=== PATIENT | female | born 1955 | race Caucasian/White ===

== ENCOUNTER 2021-02-27 14:48 | Inpatient (IN) | payer BC ==
[~2021-02-27] VITALS: Ht 160 cm; Wt 75.1 kg
[2021-02-27 16:10] LABS: Basophils # (auto) 0.1 10 ^3/uL (0-0.2); Basophils % (auto) 0.5 % (0.0-2.0); Eosinophils # (auto) 0.1 10 ^3/uL (0-0.8); Hematocrit 46.5 % (36.0-46.0); Lymphocytes # (auto) 1.1 10 ^3/uL (0.4-5.4); Lymphocytes % (auto) 10.1 % (10.0-50.0); Mean Corpuscular Hemoglobin 32.8 pg (28.0-32.0); Mean Corpuscular Hgb Conc. 34.5 g/dL (32.0-36.0); Mean Corpuscular Volume 94.9 fL (80.0-100.0); Monocytes # (auto) 0.5 10 ^3/uL (0-1.3); Monocytes % (auto) 4.6 % (0.0-12.0); Neutrophils # (auto) 8.8 10 ^3/uL (1.6-8.6); Neutrophils % (auto) 83.8 % (37.0-80.0); Red Cell Distribution Width 12.9 % (11.8-14.3); White Blood Cell 10.5 10^3/uL (4.4-10.8)
[2021-02-27 16:17] LABS: Albumin 3.1 g/dL (3.4-5.0); Calcium 8.7 mg/dL (8.5-10.1); Potassium 3.9 mmol/L (3.5-5.1)
[2021-02-27 16:25] LABS: Bilirubin, Total 2.2 mg/dL (0.2-1.0); Total Protein 6.5 g/dL (6.4-8.2)
[2021-02-27 16:55] LABS: Urine Bacteria FEW /hpf (None Seen); Urine Blood Negative /uL (Negative); Urine Specific Gravity 1.012 (1.001-1.035); Urine WBC 2 /hpf (0 - 5)
[2021-02-27] MEDS ORDERED: SODIUM CHLORIDE 0.9% 1,000 ML IV ONE (17:45)
[2021-02-27] MEDS ORDERED: ONDANSETRON HCL 4 MG/2 ML VIAL IV ONE (17:45)
[2021-02-27] MEDS ORDERED: HYDROmorphone HCL 2 MG/ML VL IV ONE (17:45)
[2021-02-27] MEDS ORDERED: PANTOPRAZOLE 40 MG/10 ML VIAL INJ IV ONE (17:45)
[2021-02-27] MEDS ORDERED: NITROGLYCERIN 0.4 MG SL TAB SL PRN (19:15)
[2021-02-27] MEDS ORDERED: MORPHINE SULFATE INJECTION 2 MG/ML SYRG IV PRN ×3 (19:15)
[2021-02-27] MEDS ORDERED: DEXTROSE (50%) 50ML SYRG IV PRN (19:15)
[2021-02-27] MEDS ORDERED: PROMETHAZINE HCL 25 MG/ML 1ML IV PRN (19:15)
[2021-02-27] MEDS ORDERED: cefTRIAXone 1GM/50ML D5W 50 ML IV ONE (19:15)
[2021-02-27] MEDS: SODIUM CHLORIDE 0.9% 1,000 ML IV SCH (19:57)
[2021-02-27] MEDS: metroNIDAZOLE 500MG/100ML 100 ML IV SCH (23:15)
[2021-02-28 01:36] VITALS: BP 107/63
[2021-02-28] MEDS: SODIUM CHLORIDE 0.9% 1,000 ML IV SCH ×4 (01:55→21:55)
[2021-02-28] MEDS: ACCU-CHEK COMFORT CURVE STRIP VI SCH ×4 (03:30→17:19)
[2021-02-28] MEDS: InsuLIN REG 1unit/0.01ml Soln (100units/ml) SC SCH ×4 (03:37→17:18)
[2021-02-28 05:30] VITALS: BP 133/71
[2021-02-28] MEDS: metroNIDAZOLE 500MG/100ML 100 ML IV SCH ×3 (05:45→22:04)
[2021-02-28] MEDS ORDERED: LEVO75TA6 PO (06:37)
[2021-02-28] MEDS ORDERED: ESTR0.1C5 VG (06:37)
[2021-02-28] MEDS ORDERED: OMEP-260 PO (06:37)
[2021-02-28] MEDS ORDERED: DAPA1TAB4 PO (06:37)
[2021-02-28] MEDS ORDERED: OXYB5TAB61 (06:37)
[2021-02-28] MEDS ORDERED: SITA100T7 PO (06:37)
[2021-02-28] MEDS ORDERED: INSU1INJ13 SC (06:37)
[2021-02-28] MEDS: PANTOPRAZOLE 40 MG/10 ML VIAL INJ IV SCH (08:19)
[2021-02-28 08:32] LABS: Basophils # (auto) 0 10 ^3/uL (0-0.2); Basophils % (auto) 0.4 % (0.0-2.0); Eosinophils # (auto) 0.1 10 ^3/uL (0-0.8); Eosinophils % (auto) 1.3 % (0.0-7.0); Hemoglobin 13.6 g/dL (12.2-16.2); Lymphocytes # (auto) 1.4 10 ^3/uL (0.4-5.4); Lymphocytes % (auto) 16.1 % (10.0-50.0); Mean Corpuscular Hemoglobin 32.3 pg (28.0-32.0); Mean Corpuscular Hgb Conc. 33.9 g/dL (32.0-36.0); Mean Corpuscular Volume 95.3 fL (80.0-100.0); Monocytes # (auto) 0.7 10 ^3/uL (0-1.3); Monocytes % (auto) 7.9 % (0.0-12.0); Neutrophils # (auto) 6.4 10 ^3/uL (1.6-8.6); Neutrophils % (auto) 74.3 % (37.0-80.0); Red Cell Distribution Width 12.8 % (11.8-14.3); White Blood Cell 8.6 10^3/uL (4.4-10.8)
[2021-02-28 08:36] VITALS: BP 130/67
[2021-02-28 08:48] LABS: INR 1.24 (0.9-1.15); Partial Thromboplastin Time 26.7 sec (23.6-33.0)
[2021-02-28 08:49] LABS: Albumin 2.5 g/dL (3.4-5.0); BUN/Creatinine Ratio 18.6
[2021-02-28 08:56] LABS: Bilirubin, Total 1.9 mg/dL (0.2-1.0); Total Protein 5.3 g/dL (6.4-8.2)
[2021-02-28 13:00] VITALS: BP 147/76
[2021-02-28] MEDS: HYDROcodone-ACET 5/325MG TAB PO PRN ×2 (13:38→22:10)
[2021-02-28] MEDS ORDERED: cefTRIAXone 1GM/50ML D5W 50 ML IV SCH (22:00)
[2021-03-01] MEDS: SODIUM CHLORIDE 0.9% 1,000 ML IV SCH (04:31)
[2021-03-01 05:30] VITALS: BP 118/65
[2021-03-01] MEDS: metroNIDAZOLE 500MG/100ML 100 ML IV SCH (05:42)
[2021-03-01] MEDS: InsuLIN REG 1unit/0.01ml Soln (100units/ml) SC SCH ×5 (05:42→23:20)
[2021-03-01] MEDS: ACCU-CHEK COMFORT CURVE STRIP VI SCH ×5 (05:42→23:20)
[2021-03-01 06:47] LABS: Basophils # (auto) 0 10 ^3/uL (0-0.2); Basophils % (auto) 0.8 % (0.0-2.0); Eosinophils # (auto) 0.2 10 ^3/uL (0-0.8); Eosinophils % (auto) 4.1 % (0.0-7.0); Hematocrit 39.3 % (36.0-46.0); Hemoglobin 13.5 g/dL (12.2-16.2); Lymphocytes # (auto) 1.1 10 ^3/uL (0.4-5.4); Mean Corpuscular Hemoglobin 32.9 pg (28.0-32.0); Mean Corpuscular Hgb Conc. 34.3 g/dL (32.0-36.0); Monocytes # (auto) 0.4 10 ^3/uL (0-1.3); Monocytes % (auto) 9.7 % (0.0-12.0); Neutrophils # (auto) 2.7 10 ^3/uL (1.6-8.6); Neutrophils % (auto) 61.4 % (37.0-80.0); Red Blood Cells 4.09 10^6/uL (4.0-5.20); Red Cell Distribution Width 12.9 % (11.8-14.3); White Blood Cell 4.4 10^3/uL (4.4-10.8)
[2021-03-01 07:15] LABS: Albumin 2.4 g/dL (3.4-5.0); BUN/Creatinine Ratio 15.6; Calcium 8.1 mg/dL (8.5-10.1)
[2021-03-01 07:25] LABS: Bilirubin, Total 1.1 mg/dL (0.2-1.0); Total Protein 5.3 g/dL (6.4-8.2)
[2021-03-01 07:26] LABS: Potassium 4.1 mmol/L (3.5-5.1)
[2021-03-01 08:00] VITALS: BP 142/76
[2021-03-01] MEDS: PANTOPRAZOLE 40 MG/10 ML VIAL INJ IV SCH (08:56)
[2021-03-01] MEDS ORDERED: ENOXAPARIN SOD 40 MG/0.4 ML SYRINGE SC ONE (10:30)
[2021-03-01 10:43] LABS: Cholesterol 112 mg/dL (< 200); HDL Cholesterol 37 mg/dL (40-59); LDL Cholesterol 68 mg/dL (< 100); Triglycerides 62 mg/dL (< 150)
[2021-03-01] MEDS: HYDROcodone-ACET 5/325MG TAB PO PRN ×2 (11:36→22:41)
[2021-03-01 12:00] VITALS: BP 142/70
[2021-03-01 16:00] VITALS: BP 130/64
[2021-03-01 22:00] VITALS: BP 139/85
[2021-03-02 05:00] VITALS: BP 135/73
[2021-03-02] MEDS: InsuLIN REG 1unit/0.01ml Soln (100units/ml) SC SCH ×3 (06:00→18:00)
[2021-03-02] MEDS: ACCU-CHEK COMFORT CURVE STRIP VI SCH ×3 (06:37→18:00)
[2021-03-02] MEDS ORDERED: LEVOTHYROXINE SODIUM 25 MCG TAB PO SCH (07:00)
[2021-03-02 09:00] VITALS: BP 142/70
[2021-03-02] MEDS: PANTOPRAZOLE 40 MG/10 ML VIAL INJ IV SCH (09:54)
[2021-03-02] MEDS ORDERED: PANT40TA2 PO (10:32)
[2021-03-02 13:00] VITALS: BP 145/72
[2021-03-02] MEDS: HYDROcodone-ACET 5/325MG TAB PO PRN (15:13)
[2021-03-02 16:52] VITALS: BP 142/70
[2021-03-02 17:00] VITALS: BP 134/71
== END 2021-03-02 18:13 | disposition home or self-care (01) | DRG 438 ==
LOC: EDBD 14:48 → ER 14:48 → OVERFLOW 19:01 → TELE-WESTW 02-28 01:42 → WEST WING 03-01 11:35
PROVIDERS: ADMIT Internal Medicine; ATTEND Internal Medicine
DX: K85.10 Biliary acute pancreatitis without necrosis or infection (principal); J96.00 Acute respiratory failure, unspecified whether with hypoxia or hypercapnia; Z20.822 Contact with and (suspected) exposure to COVID-19; K80.20 Calculus of gallbladder without cholecystitis without obstruction; E11.65 Type 2 diabetes mellitus with hyperglycemia; K57.30 Diverticulosis of large intestine without perforation or abscess without bleeding; K42.9 Umbilical hernia without obstruction or gangrene; N18.9 Chronic kidney disease, unspecified; E78.5 Hyperlipidemia, unspecified; E03.9 Hypothyroidism, unspecified; I12.9 Hypertensive chronic kidney disease with stage 1 through stage 4 chronic kidney disease, or unspecified chronic kidney disease; E11.22 Type 2 diabetes mellitus with diabetic chronic kidney disease; E66.3 Overweight; Z88.5 Allergy status to narcotic agent; Z88.2 Allergy status to sulfonamides; Z88.7 Allergy status to serum and vaccine; Z90.89 Acquired absence of other organs; Z83.3 Family history of diabetes mellitus; Z81.8 Family history of other mental and behavioral disorders; Z68.33 Body mass index [BMI] 33.0-33.9, adult; Z79.899 Other long term (current) drug therapy
CPT/HCPCS: 36415; 74176; 74181; 76705; 80053; 80061; 80320; 81001; 82150; 82962; 83036; 83690; 85025; 85610; 85730; 87086; 87426; 93005; 96365; 96366; 96375; C9113; G0378; J0696; J1815; J2405; J3490

== ENCOUNTER 2021-03-21 09:07 | Inpatient (IN) | payer BC ==
[~2021-03-21] VITALS: Ht 160 cm; Wt 62.5 kg
[~2021-03-21 09:07] MED LIST: DAPA1TAB4 PO; ESTR0.1C5 VG; INSU1INJ13 SC; LEVO75TA6 PO; OMEP-260 PO; OXYB5TAB61; PANT40TA2 PO
[2021-03-21] MEDS ORDERED: hydrOXYchloroQUINE SULFATE 200 MG TAB PO ONE (11:00)
[2021-03-21] MEDS ORDERED: SODIUM CHLORIDE 0.9% 1,000 ML IVB ONE (11:00)
[2021-03-21] MEDS ORDERED: SODIUM CHLORIDE 0.9% 1,000 ML IV ONE (11:00)
[2021-03-21] MEDS ORDERED: CHOLECALCIFEROL (VITD3) 2,000 UNIT CAP/TAB PO ONE (11:00)
[2021-03-21] MEDS ORDERED: ZINC SULFATE 220mg CAP or TAB PO ONE (11:00)
[2021-03-21] MEDS ORDERED: ASCORBIC ACID 500 MG TAB PO ONE (11:00)
[2021-03-21] MEDS ORDERED: cefTRIAXone 1GM/50ML D5W 50 ML IV ONE (11:00)
[2021-03-21] MEDS ORDERED: DOXYCYCLINE 100MG/250ML 250 ML IV ONE (11:00)
[2021-03-21 11:08] LABS: Basophils # (auto) 0 10 ^3/uL (0-0.2); Basophils % (auto) 0.4 % (0.0-2.0); Eosinophils # (auto) 0 10 ^3/uL (0-0.8); Hematocrit 47.8 % (36.0-46.0); Hemoglobin 16.4 g/dL (12.2-16.2); Lymphocytes # (auto) 0.5 10 ^3/uL (0.4-5.4); Lymphocytes % (auto) 7.7 % (10.0-50.0); Mean Corpuscular Hemoglobin 31.8 pg (28.0-32.0); Mean Corpuscular Hgb Conc. 34.2 g/dL (32.0-36.0); Mean Corpuscular Volume 92.9 fL (80.0-100.0); Monocytes # (auto) 0.5 10 ^3/uL (0-1.3); Monocytes % (auto) 8.8 % (0.0-12.0); Neutrophils # (auto) 5.1 10 ^3/uL (1.6-8.6); Neutrophils % (auto) 83.1 % (37.0-80.0); Nucleated Red Blood Cells % 0.5 %; Red Blood Cells 5.15 10^6/uL (4.0-5.20); Red Cell Distribution Width 13.2 % (11.8-14.3); White Blood Cell 6.1 10^3/uL (4.4-10.8)
[2021-03-21 11:18] LABS: Albumin 2.9 g/dL (3.4-5.0); Anion Gap 9 (5-15); Blood Urea Nitrogen 14 mg/dL (7-18); Calcium 8.9 mg/dL (8.5-10.1); Carbon Dioxide 22 mmol/L (21-32); Chloride 103 mmol/L (98-107); Glucose 136 mg/dL (74-106); Potassium 4.6 mmol/L (3.5-5.1); Sodium 134 mmol/L (136-145)
[2021-03-21 11:23] LABS: Alanine Aminotransferase 47 U/L (13-56); Alkaline Phosphatase 119 U/L (45-117); Aspartate Aminotransferase 70 U/L (15-37); BUN/Creatinine Ratio 21.2; Bilirubin, Total 1.3 mg/dL (0.2-1.0); GFR African American 115 mL/min; GFR Non-African American 95 mL/min; Total Protein 6.7 g/dL (6.4-8.2)
[2021-03-21] MEDS ORDERED: ONDANSETRON HCL 4 MG/2 ML VIAL IV ONE (12:30)
[2021-03-21] MEDS ORDERED: MORPHINE SULFATE INJECTION 2 MG/ML SYRG IV PRN ×2 (12:45→13:30)
[2021-03-21] MEDS ORDERED: NITROGLYCERIN 0.4 MG SL TAB SL PRN (12:45)
[2021-03-21] MEDS ORDERED: REMDESIVIR PER PHARMACY 0 ML IV SCH (12:45)
[2021-03-21] MEDS ORDERED: DEXTROSE (50%) 50ML SYRG IV PRN (13:30)
[2021-03-21] MEDS ORDERED: TEMAZEPAM 15 MG CAP PO PRN (13:30)
[2021-03-21] MEDS ORDERED: traMADol HCL 50 MG TAB PO PRN (13:30)
[2021-03-21] MEDS: SODIUM CHLORIDE 0.9% 1,000 ML IV SCH (13:42)
[2021-03-21 15:23] LABS: Urine Bacteria FEW /hpf (None Seen); Urine Blood Negative /uL (Negative); Urine Hyaline Cast FEW /lpf (0 - 2); Urine Specific Gravity 1.009 (1.001-1.035); Urine WBC 1 /hpf (0 - 5)
[2021-03-21] MEDS: InsuLIN REG 1unit/0.01ml Soln (100units/ml) SC SCH ×2 (17:00→23:29)
[2021-03-21] MEDS ORDERED: REMDESIVIR 200 MG in NS 210ml LOADING DOSE ADULT IV ONE (17:00)
[2021-03-21] MEDS: ACCU-CHEK COMFORT CURVE STRIP VI SCH ×2 (17:05→23:29)
[2021-03-21] MEDS: ONDANSETRON HCL 4 MG/2 ML VIAL IV PRN (18:47)
[2021-03-21 21:40] VITALS: BP 137/75
[2021-03-21] MEDS ORDERED: ENOXAPARIN SOD 40 MG/0.4 ML SYRINGE SC SCH (22:00)
[2021-03-21] MEDS: BUDESONIDE (INHALATION) 180 MCG IH IN SCH (22:00)
[2021-03-21] MEDS: FLORASTOR (S. BOULARDII) 250 MG CAP PO SCH (23:28)
[2021-03-22] MEDS: ONDANSETRON HCL 4 MG/2 ML VIAL IV PRN (01:26)
[2021-03-22] MEDS: SODIUM CHLORIDE 0.9% 1,000 ML IV SCH (03:27)
[2021-03-22] MEDS: InsuLIN REG 1unit/0.01ml Soln (100units/ml) SC SCH ×4 (06:55→22:03)
[2021-03-22] MEDS: ACCU-CHEK COMFORT CURVE STRIP VI SCH ×4 (06:55→21:46)
[2021-03-22 07:11] LABS: Albumin 2.2 g/dL (3.4-5.0); Calcium 8.2 mg/dL (8.5-10.1); Potassium 3.3 mmol/L (3.5-5.1)
[2021-03-22 07:15] LABS: BUN/Creatinine Ratio 21.3; Bilirubin, Total 1.1 mg/dL (0.2-1.0); Total Protein 5.5 g/dL (6.4-8.2)
[2021-03-22] MEDS ORDERED: ESCI20TA PO (07:18)
[2021-03-22] MEDS ORDERED: ASPI-543 PO (07:18)
[2021-03-22] MEDS ORDERED: HYDR200T36 PO (07:18)
[2021-03-22] MEDS ORDERED: ASCO500T11 PO (07:18)
[2021-03-22] MEDS ORDERED: ZINC220C8 PO (07:18)
[2021-03-22] MEDS ORDERED: FLUT110A INH (07:18)
[2021-03-22 08:00] VITALS: BP 138/76
[2021-03-22] MEDS: ZINC SULFATE 220mg CAP or TAB PO SCH (09:47)
[2021-03-22] MEDS: levoFLOXacin 500MG 100 ML IV SCH (09:47)
[2021-03-22] MEDS: FLORASTOR (S. BOULARDII) 250 MG CAP PO SCH ×2 (09:52→21:46)
[2021-03-22] MEDS: IVERMECTIN 3 MG TAB PO SCH (09:53)
[2021-03-22] MEDS: ASCORBIC ACID 1,000 MG TAB PO SCH (09:54)
[2021-03-22] MEDS: CHOLECALCIFEROL (VITD3) 2,000 UNIT CAP/TAB PO SCH (09:54)
[2021-03-22] MEDS: BUDESONIDE (INHALATION) 180 MCG IH IN SCH ×2 (10:00→21:12)
[2021-03-22] MEDS ORDERED: DexAMETHasone SOD PHOS 10MG/1ML VIAL INJ IV SCH (10:00)
[2021-03-22] MEDS: ENOXAPARIN SOD 60 MG/0.6 ML SYRINGE SC SCH ×2 (10:31→21:46)
[2021-03-22] MEDS ORDERED: POTASSIUM CHL 20 Meq TABLET PO ONE (10:45)
[2021-03-22] MEDS ORDERED: FUROSEMIDE 40 MG/4 ML VIAL IV ONE (11:00)
[2021-03-22 12:00] VITALS: BP 119/64
[2021-03-22] MEDS: ALBUTEROL SULF HFA 90MCG INH 200DOSE IN PRN ×2 (12:58→21:12)
[2021-03-22] MEDS ORDERED: DEXTROSE (50%) 50ML SYRG IV PRN (14:00)
[2021-03-22] MEDS: REMDESIVIR 100mg 100 MG in SODIUM CHL 0.9% 230 ML IV SCH (15:11)
[2021-03-22 15:59] VITALS: BP 135/75
[2021-03-22 22:00] VITALS: BP 105/58
[2021-03-23 05:00] VITALS: BP 112/66
[2021-03-23] MEDS: ACCU-CHEK COMFORT CURVE STRIP VI SCH ×4 (06:26→21:35)
[2021-03-23] MEDS: InsuLIN REG 1unit/0.01ml Soln (100units/ml) SC SCH ×4 (06:32→21:35)
[2021-03-23 06:58] LABS: Basophils # (auto) 0 10 ^3/uL (0-0.2); Basophils % (auto) 0.1 % (0.0-2.0); Eosinophils # (auto) 0 10 ^3/uL (0-0.8); Hematocrit 41.2 % (36.0-46.0); Hemoglobin 14.8 g/dL (12.2-16.2); Lymphocytes # (auto) 0.4 10 ^3/uL (0.4-5.4); Lymphocytes % (auto) 4.6 % (10.0-50.0); Mean Corpuscular Hemoglobin 32.6 pg (28.0-32.0); Mean Corpuscular Hgb Conc. 35.8 g/dL (32.0-36.0); Monocytes # (auto) 0.3 10 ^3/uL (0-1.3); Monocytes % (auto) 4.3 % (0.0-12.0); Neutrophils # (auto) 7.2 10 ^3/uL (1.6-8.6); Red Blood Cells 4.53 10^6/uL (4.0-5.20); Red Cell Distribution Width 13.1 % (11.8-14.3); White Blood Cell 7.9 10^3/uL (4.4-10.8)
[2021-03-23 07:09] LABS: Potassium 3.7 mmol/L (3.5-5.1)
[2021-03-23 07:22] LABS: Albumin 2.3 g/dL (3.4-5.0); BUN/Creatinine Ratio 23.4; CRP High Sensitivity 8.59 mg/dL (< 0.3); Calcium 8.3 mg/dL (8.5-10.1); Total Protein 5.7 g/dL (6.4-8.2)
[2021-03-23 08:40] VITALS: BP 117/72
[2021-03-23] MEDS ORDERED: FUROSEMIDE 20 MG/2 ML VIAL IV SCH (10:00)
[2021-03-23] MEDS ORDERED: DexAMETHasone SOD PHOS 10MG/1ML VIAL INJ IV SCH (10:00)
[2021-03-23] MEDS: ASCORBIC ACID 1,000 MG TAB PO SCH (10:21)
[2021-03-23] MEDS: levoFLOXacin 500MG 100 ML IV SCH (10:21)
[2021-03-23] MEDS: IVERMECTIN 3 MG TAB PO SCH (10:22)
[2021-03-23] MEDS: CHOLECALCIFEROL (VITD3) 2,000 UNIT CAP/TAB PO SCH (10:22)
[2021-03-23] MEDS: ZINC SULFATE 220mg CAP or TAB PO SCH (10:22)
[2021-03-23] MEDS: FLORASTOR (S. BOULARDII) 250 MG CAP PO SCH ×2 (10:23→21:34)
[2021-03-23] MEDS: ENOXAPARIN SOD 60 MG/0.6 ML SYRINGE SC SCH (10:24)
[2021-03-23 12:08] VITALS: BP 122/69
[2021-03-23] MEDS: FUROSEMIDE 40 MG/4 ML VIAL IV SCH (13:24)
[2021-03-23] MEDS: ALBUTEROL SULF HFA 90MCG INH 200DOSE IN PRN ×2 (13:57→21:20)
[2021-03-23] MEDS: BUDESONIDE (INHALATION) 180 MCG IH IN SCH ×2 (13:57→19:33)
[2021-03-23] MEDS: REMDESIVIR 100mg 100 MG in SODIUM CHL 0.9% 230 ML IV SCH (15:06)
[2021-03-23 16:58] VITALS: BP 123/67
[2021-03-23] MEDS: ENOXAPARIN SOD 40 MG/0.4 ML SYRINGE SC SCH (21:34)
[2021-03-23] MEDS: DOXYCYCLINE 100 MG TAB/CAP PO SCH (21:35)
[2021-03-23 22:00] VITALS: BP 106/61
[2021-03-23] MEDS ORDERED: DOXYCYCLINE 100 MG TAB/CAP PO SCH (22:00)
[2021-03-24 05:00] VITALS: BP 116/58
[2021-03-24 06:20] LABS: Albumin 2.2 g/dL (3.4-5.0); Calcium 8.5 mg/dL (8.5-10.1); Potassium 3.6 mmol/L (3.5-5.1)
[2021-03-24 06:24] LABS: BUN/Creatinine Ratio 30.6; Bilirubin, Total 0.9 mg/dL (0.2-1.0); Total Protein 5.6 g/dL (6.4-8.2)
[2021-03-24] MEDS: InsuLIN REG 1unit/0.01ml Soln (100units/ml) SC SCH ×4 (06:42→21:18)
[2021-03-24] MEDS: ACCU-CHEK COMFORT CURVE STRIP VI SCH ×4 (06:43→21:22)
[2021-03-24] MEDS: ALBUTEROL SULF HFA 90MCG INH 200DOSE IN PRN ×2 (06:53→23:19)
[2021-03-24] MEDS: BUDESONIDE (INHALATION) 180 MCG IH IN SCH ×2 (06:53→21:27)
[2021-03-24] MEDS: ENOXAPARIN SOD 40 MG/0.4 ML SYRINGE SC SCH ×2 (08:40→21:21)
[2021-03-24] MEDS: DexAMETHasone SOD PHOS 10MG/1ML VIAL INJ IV SCH (08:40)
[2021-03-24] MEDS: ZINC SULFATE 220mg CAP or TAB PO SCH (08:40)
[2021-03-24] MEDS: FLORASTOR (S. BOULARDII) 250 MG CAP PO SCH ×2 (08:40→21:22)
[2021-03-24] MEDS: DOXYCYCLINE 100 MG TAB/CAP PO SCH ×2 (08:40→21:21)
[2021-03-24] MEDS: ASCORBIC ACID 1,000 MG TAB PO SCH (08:41)
[2021-03-24] MEDS: CHOLECALCIFEROL (VITD3) 2,000 UNIT CAP/TAB PO SCH (08:41)
[2021-03-24] MEDS: IVERMECTIN 3 MG TAB PO SCH (08:41)
[2021-03-24 09:00] VITALS: BP 104/52
[2021-03-24] MEDS: FUROSEMIDE 40 MG/4 ML VIAL IV SCH (10:00)
[2021-03-24 11:13] VITALS: BP 104/52
[2021-03-24 13:00] VITALS: BP 120/68
[2021-03-24] MEDS: REMDESIVIR 100mg 100 MG in SODIUM CHL 0.9% 230 ML IV SCH (16:18)
[2021-03-24 17:00] VITALS: BP 122/74
[2021-03-24 22:00] VITALS: BP 92/46
[2021-03-25 05:00] VITALS: BP 119/58
[2021-03-25] MEDS: InsuLIN REG 1unit/0.01ml Soln (100units/ml) SC SCH ×4 (05:59→22:10)
[2021-03-25] MEDS: ACCU-CHEK COMFORT CURVE STRIP VI SCH ×4 (06:00→22:08)
[2021-03-25 06:26] LABS: Potassium 3.9 mmol/L (3.5-5.1)
[2021-03-25 06:44] LABS: Albumin 2.1 g/dL (3.4-5.0); BUN/Creatinine Ratio 30.9; Bilirubin, Total 0.9 mg/dL (0.2-1.0); Calcium 8.4 mg/dL (8.5-10.1); Total Protein 5.3 g/dL (6.4-8.2)
[2021-03-25] MEDS: ALBUTEROL SULF HFA 90MCG INH 200DOSE IN PRN ×2 (07:53→20:15)
[2021-03-25] MEDS: BUDESONIDE (INHALATION) 180 MCG IH IN SCH ×2 (07:53→20:15)
[2021-03-25] MEDS: DexAMETHasone SOD PHOS 10MG/1ML VIAL INJ IV SCH (08:36)
[2021-03-25] MEDS: CHOLECALCIFEROL (VITD3) 2,000 UNIT CAP/TAB PO SCH (08:37)
[2021-03-25] MEDS: ENOXAPARIN SOD 40 MG/0.4 ML SYRINGE SC SCH ×2 (08:37→22:09)
[2021-03-25] MEDS: ASCORBIC ACID 1,000 MG TAB PO SCH (08:37)
[2021-03-25] MEDS: FLORASTOR (S. BOULARDII) 250 MG CAP PO SCH ×2 (08:37→22:08)
[2021-03-25] MEDS: DOXYCYCLINE 100 MG TAB/CAP PO SCH ×2 (08:37→22:08)
[2021-03-25] MEDS: IVERMECTIN 3 MG TAB PO SCH (08:37)
[2021-03-25] MEDS: ZINC SULFATE 220mg CAP or TAB PO SCH (08:37)
[2021-03-25 09:00] VITALS: BP 107/58
[2021-03-25] MEDS: FUROSEMIDE 40 MG/4 ML VIAL IV SCH (12:30)
[2021-03-25 13:00] VITALS: BP 136/76
[2021-03-25] MEDS: REMDESIVIR 100mg 100 MG in SODIUM CHL 0.9% 230 ML IV SCH (16:30)
[2021-03-25 17:00] VITALS: BP 116/68
[2021-03-25] MEDS ORDERED: ALPRAZolam 0.25 MG TAB PO ONE (17:15)
[2021-03-25] MEDS ORDERED: ALPRAZolam 0.25 MG TAB PO PRN (18:30)
[2021-03-25 22:34] VITALS: BP 88/42
[2021-03-26 05:08] VITALS: BP 119/67
[2021-03-26] MEDS: ACCU-CHEK COMFORT CURVE STRIP VI SCH ×4 (06:25→22:03)
[2021-03-26] MEDS: InsuLIN REG 1unit/0.01ml Soln (100units/ml) SC SCH ×4 (06:27→22:05)
[2021-03-26 09:00] VITALS: BP 97/53
[2021-03-26] MEDS: DexAMETHasone SOD PHOS 10MG/1ML VIAL INJ IV SCH (09:23)
[2021-03-26] MEDS: DOXYCYCLINE 100 MG TAB/CAP PO SCH ×2 (09:24→22:04)
[2021-03-26] MEDS: FLORASTOR (S. BOULARDII) 250 MG CAP PO SCH ×2 (09:24→22:04)
[2021-03-26] MEDS: ZINC SULFATE 220mg CAP or TAB PO SCH (09:24)
[2021-03-26] MEDS: ENOXAPARIN SOD 40 MG/0.4 ML SYRINGE SC SCH ×2 (09:24→22:03)
[2021-03-26] MEDS: IVERMECTIN 3 MG TAB PO SCH (09:24)
[2021-03-26] MEDS: CHOLECALCIFEROL (VITD3) 2,000 UNIT CAP/TAB PO SCH (09:24)
[2021-03-26] MEDS: ASCORBIC ACID 1,000 MG TAB PO SCH (09:24)
[2021-03-26] MEDS: FUROSEMIDE 40 MG/4 ML VIAL IV SCH (10:00)
[2021-03-26] MEDS: ALBUTEROL SULF HFA 90MCG INH 200DOSE IN PRN ×2 (10:29→22:35)
[2021-03-26] MEDS: BUDESONIDE (INHALATION) 180 MCG IH IN SCH ×2 (10:29→22:00)
[2021-03-26 13:00] VITALS: BP 109/59
[2021-03-26 17:00] VITALS: BP 125/56
[2021-03-26] MEDS ORDERED: ALPRAZolam 0.25 MG TAB PO PRN (17:15)
[2021-03-26 22:51] VITALS: BP 113/74
[2021-03-27 05:10] VITALS: BP 122/73
[2021-03-27] MEDS: ACCU-CHEK COMFORT CURVE STRIP VI SCH ×4 (06:22→21:33)
[2021-03-27] MEDS: InsuLIN REG 1unit/0.01ml Soln (100units/ml) SC SCH ×4 (06:32→21:37)
[2021-03-27] MEDS: ALBUTEROL SULF HFA 90MCG INH 200DOSE IN PRN (06:54)
[2021-03-27] MEDS: BUDESONIDE (INHALATION) 180 MCG IH IN SCH ×2 (06:54→20:57)
[2021-03-27 09:00] VITALS: BP 92/50
[2021-03-27] MEDS: ZINC SULFATE 220mg CAP or TAB PO SCH (09:20)
[2021-03-27] MEDS: ASCORBIC ACID 1,000 MG TAB PO SCH (09:20)
[2021-03-27] MEDS: FLORASTOR (S. BOULARDII) 250 MG CAP PO SCH ×2 (09:20→21:39)
[2021-03-27] MEDS: DexAMETHasone SOD PHOS 10MG/1ML VIAL INJ IV SCH (09:23)
[2021-03-27] MEDS: CHOLECALCIFEROL (VITD3) 2,000 UNIT CAP/TAB PO SCH (09:23)
[2021-03-27] MEDS: DOXYCYCLINE 100 MG TAB/CAP PO SCH ×2 (09:23→21:39)
[2021-03-27] MEDS: IVERMECTIN 3 MG TAB PO SCH (09:23)
[2021-03-27] MEDS: ENOXAPARIN SOD 40 MG/0.4 ML SYRINGE SC SCH (09:24)
[2021-03-27] MEDS: FUROSEMIDE 40 MG/4 ML VIAL IV SCH (10:00)
[2021-03-27 13:00] VITALS: BP 119/68
[2021-03-27 17:00] VITALS: BP 132/71
[2021-03-27 18:36] VITALS: BP 132/71
[2021-03-27] MEDS: ENOXAPARIN SOD 60 MG/0.6 ML SYRINGE SC SCH (21:40)
[2021-03-27 21:50] VITALS: BP 127/68
[2021-03-28] VITALS (8 sets, daily range): BP systolic 105–137; BP diastolic 63–79
[2021-03-28] MEDS: ALPRAZolam 0.25 MG TAB PO PRN ×2 (04:09→12:35)
[2021-03-28] MEDS: ACCU-CHEK COMFORT CURVE STRIP VI SCH ×4 (06:52→23:17)
[2021-03-28] MEDS: InsuLIN REG 1unit/0.01ml Soln (100units/ml) SC SCH ×4 (06:53→23:13)
[2021-03-28] MEDS: ALBUTEROL SULF HFA 90MCG INH 200DOSE IN PRN ×2 (08:05→18:39)
[2021-03-28] MEDS: BUDESONIDE (INHALATION) 180 MCG IH IN SCH ×2 (08:05→18:38)
[2021-03-28] MEDS: ZINC SULFATE 220mg CAP or TAB PO SCH (10:32)
[2021-03-28] MEDS: FUROSEMIDE 40 MG/4 ML VIAL IV SCH (10:32)
[2021-03-28] MEDS: DexAMETHasone SOD PHOS 10MG/1ML VIAL INJ IV SCH (10:32)
[2021-03-28] MEDS: FLORASTOR (S. BOULARDII) 250 MG CAP PO SCH ×2 (10:32→23:07)
[2021-03-28] MEDS: DOXYCYCLINE 100 MG TAB/CAP PO SCH (10:33)
[2021-03-28] MEDS: ASCORBIC ACID 1,000 MG TAB PO SCH (10:33)
[2021-03-28] MEDS: ENOXAPARIN SOD 60 MG/0.6 ML SYRINGE SC SCH ×2 (10:33→23:07)
[2021-03-28] MEDS: CHOLECALCIFEROL (VITD3) 2,000 UNIT CAP/TAB PO SCH (10:33)
[2021-03-28] MEDS ORDERED: Ensure Enlive Strawberry 8oz Bottle PO SCH (12:30)
[2021-03-28] MEDS ORDERED: Glucerna Carbsteady SHAKE Vanilla 8oz PO SCH (18:00)
[2021-03-29] MEDS: guaiFENesin-DM 100/10mg/5ml SYR PO PRN ×2 (03:15→09:34)
[2021-03-29 05:00] VITALS: BP 140/80
[2021-03-29] MEDS: ALBUTEROL SULF HFA 90MCG INH 200DOSE IN PRN ×2 (06:44→21:36)
[2021-03-29] MEDS: BUDESONIDE (INHALATION) 180 MCG IH IN SCH ×2 (06:44→21:36)
[2021-03-29] MEDS: ACCU-CHEK COMFORT CURVE STRIP VI SCH ×4 (06:45→22:20)
[2021-03-29] MEDS: InsuLIN REG 1unit/0.01ml Soln (100units/ml) SC SCH ×4 (06:45→22:22)
[2021-03-29] MEDS: Ensure Enlive Strawberry 8oz Bottle PO SCH ×3 (08:00→18:00)
[2021-03-29 08:30] VITALS: BP 106/70
[2021-03-29] MEDS: DexAMETHasone SOD PHOS 10MG/1ML VIAL INJ IV SCH (09:23)
[2021-03-29] MEDS: ZINC SULFATE 220mg CAP or TAB PO SCH (09:24)
[2021-03-29] MEDS: FLORASTOR (S. BOULARDII) 250 MG CAP PO SCH ×2 (09:24→22:19)
[2021-03-29] MEDS: ASCORBIC ACID 1,000 MG TAB PO SCH (09:24)
[2021-03-29] MEDS: CHOLECALCIFEROL (VITD3) 2,000 UNIT CAP/TAB PO SCH (09:24)
[2021-03-29] MEDS: ENOXAPARIN SOD 60 MG/0.6 ML SYRINGE SC SCH ×2 (09:24→22:19)
[2021-03-29] MEDS: FUROSEMIDE 40 MG/4 ML VIAL IV SCH (09:25)
[2021-03-29] MEDS: ALPRAZolam 0.25 MG TAB PO PRN ×2 (09:34→22:23)
[2021-03-29 12:30] VITALS: BP 123/74
[2021-03-29 16:50] VITALS: BP 105/70
[2021-03-29 22:00] VITALS: BP 101/51
[2021-03-29] MEDS ORDERED: TOCILIZUMAB 400 MG in SODIUM CHL 0.9% 80 ML IV SCH (22:00)
[2021-03-30] MEDS: ACETAMINOPHEN 500 MG TAB PO PRN (02:00)
[2021-03-30 05:00] VITALS: BP 104/58
[2021-03-30] MEDS: BUDESONIDE (INHALATION) 180 MCG IH IN SCH ×2 (06:45→22:03)
[2021-03-30] MEDS: ALBUTEROL SULF HFA 90MCG INH 200DOSE IN PRN ×2 (06:45→22:03)
[2021-03-30] MEDS: ACCU-CHEK COMFORT CURVE STRIP VI SCH ×4 (07:03→21:01)
[2021-03-30] MEDS: InsuLIN REG 1unit/0.01ml Soln (100units/ml) SC SCH ×4 (07:03→21:21)
[2021-03-30 07:19] LABS: Basophils # (auto) 0 10 ^3/uL (0-0.2); Basophils % (auto) 0.2 % (0.0-2.0); Eosinophils # (auto) 0 10 ^3/uL (0-0.8); Hematocrit 43.3 % (36.0-46.0); Hemoglobin 14.9 g/dL (12.2-16.2); Lymphocytes # (auto) 0.4 10 ^3/uL (0.4-5.4); Mean Corpuscular Hemoglobin 31.6 pg (28.0-32.0); Mean Corpuscular Hgb Conc. 34.4 g/dL (32.0-36.0); Mean Corpuscular Volume 91.8 fL (80.0-100.0); Monocytes # (auto) 0.4 10 ^3/uL (0-1.3); Monocytes % (auto) 2.8 % (0.0-12.0); Neutrophils # (auto) 13.4 10 ^3/uL (1.6-8.6); Red Blood Cells 4.72 10^6/uL (4.0-5.20); Red Cell Distribution Width 13.2 % (11.8-14.3); White Blood Cell 14.2 10^3/uL (4.4-10.8)
[2021-03-30] MEDS: Ensure Enlive Strawberry 8oz Bottle PO SCH ×3 (08:00→18:12)
[2021-03-30 08:11] LABS: Calcium 8.3 mg/dL (8.5-10.1); Potassium 3.9 mmol/L (3.5-5.1)
[2021-03-30 08:18] LABS: BUN/Creatinine Ratio 38.3
[2021-03-30 09:00] VITALS: BP 105/60
[2021-03-30] MEDS: ASCORBIC ACID 1,000 MG TAB PO SCH (09:14)
[2021-03-30] MEDS: FLORASTOR (S. BOULARDII) 250 MG CAP PO SCH ×2 (09:14→21:00)
[2021-03-30] MEDS: DexAMETHasone SOD PHOS 10MG/1ML VIAL INJ IV SCH (09:14)
[2021-03-30] MEDS: FUROSEMIDE 40 MG/4 ML VIAL IV SCH (09:14)
[2021-03-30] MEDS: CHOLECALCIFEROL (VITD3) 2,000 UNIT CAP/TAB PO SCH (09:15)
[2021-03-30] MEDS: ENOXAPARIN SOD 60 MG/0.6 ML SYRINGE SC SCH ×2 (09:15→21:00)
[2021-03-30] MEDS: ALPRAZolam 0.25 MG TAB PO PRN (09:47)
[2021-03-30 13:00] VITALS: BP 111/68
[2021-03-30 17:00] VITALS: BP 118/63
[2021-03-30] MEDS: ZINC SULFATE 220mg CAP or TAB PO SCH (17:30)
[2021-03-30 21:41] VITALS: BP 128/66
[2021-03-31] MEDS: ALPRAZolam 0.25 MG TAB PO PRN ×2 (02:45→16:16)
[2021-03-31 05:00] VITALS: BP 124/73
[2021-03-31 05:29] LABS: Basophils # (auto) 0 10 ^3/uL (0-0.2); Basophils % (auto) 0.2 % (0.0-2.0); Eosinophils # (auto) 0 10 ^3/uL (0-0.8); Hematocrit 45.2 % (36.0-46.0); Hemoglobin 15.4 g/dL (12.2-16.2); Lymphocytes # (auto) 0.6 10 ^3/uL (0.4-5.4); Lymphocytes % (auto) 3.8 % (10.0-50.0); Mean Corpuscular Hemoglobin 31.5 pg (28.0-32.0); Mean Corpuscular Hgb Conc. 34.1 g/dL (32.0-36.0); Mean Corpuscular Volume 92.4 fL (80.0-100.0); Monocytes # (auto) 0.5 10 ^3/uL (0-1.3); Monocytes % (auto) 3.5 % (0.0-12.0); Neutrophils # (auto) 13.5 10 ^3/uL (1.6-8.6); Neutrophils % (auto) 92.5 % (37.0-80.0); Red Blood Cells 4.89 10^6/uL (4.0-5.20); Red Cell Distribution Width 13.3 % (11.8-14.3); White Blood Cell 14.6 10^3/uL (4.4-10.8)
[2021-03-31 06:20] LABS: Calcium 8.8 mg/dL (8.5-10.1); Potassium 3.8 mmol/L (3.5-5.1)
[2021-03-31 06:23] LABS: BUN/Creatinine Ratio 41.4
[2021-03-31] MEDS: ALBUTEROL SULF HFA 90MCG INH 200DOSE IN PRN ×2 (06:36→21:48)
[2021-03-31] MEDS: BUDESONIDE (INHALATION) 180 MCG IH IN SCH ×2 (06:36→21:41)
[2021-03-31] MEDS: ACCU-CHEK COMFORT CURVE STRIP VI SCH ×4 (07:00→21:51)
[2021-03-31] MEDS: InsuLIN REG 1unit/0.01ml Soln (100units/ml) SC SCH ×4 (07:01→21:50)
[2021-03-31 09:00] VITALS: BP 103/55
[2021-03-31] MEDS: DexAMETHasone SOD PHOS 10MG/1ML VIAL INJ IV SCH (10:31)
[2021-03-31] MEDS: Ensure Enlive Strawberry 8oz Bottle PO SCH ×3 (10:31→19:25)
[2021-03-31] MEDS: CHOLECALCIFEROL (VITD3) 2,000 UNIT CAP/TAB PO SCH (10:32)
[2021-03-31] MEDS: ASCORBIC ACID 1,000 MG TAB PO SCH (10:32)
[2021-03-31] MEDS: ENOXAPARIN SOD 60 MG/0.6 ML SYRINGE SC SCH ×2 (10:32→21:42)
[2021-03-31] MEDS: FUROSEMIDE 40 MG/4 ML VIAL IV SCH (10:32)
[2021-03-31] MEDS: ZINC SULFATE 220mg CAP or TAB PO SCH (10:32)
[2021-03-31] MEDS: FLORASTOR (S. BOULARDII) 250 MG CAP PO SCH ×2 (10:32→21:42)
[2021-03-31] MEDS ORDERED: THROAT LOZENGES(CEPASTAT) MT PRN (11:45)
[2021-03-31 13:00] VITALS: BP 106/64
[2021-03-31 17:00] VITALS: BP 119/72
[2021-03-31 20:02] VITALS: BP 119/72
[2021-03-31 22:00] VITALS: BP 113/66
[2021-04-01 06:19] LABS: Hematocrit 43.1 % (36.0-46.0); Hemoglobin 14.8 g/dL (12.2-16.2); Mean Corpuscular Hemoglobin 31.6 pg (28.0-32.0); Mean Corpuscular Hgb Conc. 34.3 g/dL (32.0-36.0); Red Blood Cells 4.69 10^6/uL (4.0-5.20); Red Cell Distribution Width 13.3 % (11.8-14.3); White Blood Cell 10.9 10^3/uL (4.4-10.8)
[2021-04-01] MEDS: InsuLIN REG 1unit/0.01ml Soln (100units/ml) SC SCH ×4 (06:27→21:58)
[2021-04-01 06:30] LABS: Calcium 8.2 mg/dL (8.5-10.1); Potassium 3.7 mmol/L (3.5-5.1)
[2021-04-01] MEDS: ACCU-CHEK COMFORT CURVE STRIP VI SCH ×4 (06:39→21:41)
[2021-04-01 07:16] LABS: Basophils % (manual) 0 (0.0-2.0); Blast Cells 0; Eosinophils % (manual) 0 (0-7); Myelocytes % 0; Promyelocytes % 0; Reactive Lymphocytes 0
[2021-04-01] MEDS: Ensure Enlive Strawberry 8oz Bottle PO SCH ×3 (07:46→17:48)
[2021-04-01 08:15] VITALS: BP 114/72
[2021-04-01] MEDS: BUDESONIDE (INHALATION) 180 MCG IH IN SCH ×2 (08:22→19:38)
[2021-04-01] MEDS: ALBUTEROL SULF HFA 90MCG INH 200DOSE IN PRN ×2 (08:22→19:38)
[2021-04-01 09:00] VITALS: BP 114/72
[2021-04-01] MEDS: DexAMETHasone SOD PHOS 10MG/1ML VIAL INJ IV SCH (10:16)
[2021-04-01] MEDS: ENOXAPARIN SOD 60 MG/0.6 ML SYRINGE SC SCH ×2 (10:17→21:41)
[2021-04-01] MEDS: ZINC SULFATE 220mg CAP or TAB PO SCH (10:17)
[2021-04-01] MEDS: FUROSEMIDE 40 MG/4 ML VIAL IV SCH (10:17)
[2021-04-01] MEDS: FLORASTOR (S. BOULARDII) 250 MG CAP PO SCH ×2 (10:17→21:41)
[2021-04-01] MEDS: CHOLECALCIFEROL (VITD3) 2,000 UNIT CAP/TAB PO SCH (10:17)
[2021-04-01] MEDS: ASCORBIC ACID 1,000 MG TAB PO SCH (10:17)
[2021-04-01 11:24] LABS: Band Neutrophils % (manual) 4; Lymphocytes % (manual) 3 (10.0-50.0); Metamyelocytes % 1; Monocytes % (manual) 5 (0-12)
[2021-04-01] MEDS: ACETAMINOPHEN 500 MG TAB PO PRN (12:06)
[2021-04-01 13:00] VITALS: BP 104/61
[2021-04-01 17:00] VITALS: BP 129/68
[2021-04-01 21:54] VITALS: BP 111/71
[2021-04-02 03:37] VITALS: BP 133/61
[2021-04-02 06:12] LABS: Hematocrit 45.6 % (36.0-46.0); Hemoglobin 16.2 g/dL (12.2-16.2); Mean Corpuscular Hemoglobin 32.7 pg (28.0-32.0); Mean Corpuscular Hgb Conc. 35.5 g/dL (32.0-36.0); Mean Corpuscular Volume 92.3 fL (80.0-100.0); Red Blood Cells 4.94 10^6/uL (4.0-5.20); Red Cell Distribution Width 13.3 % (11.8-14.3); White Blood Cell 15.1 10^3/uL (4.4-10.8)
[2021-04-02] MEDS: ACCU-CHEK COMFORT CURVE STRIP VI SCH ×4 (06:20→21:25)
[2021-04-02] MEDS: InsuLIN REG 1unit/0.01ml Soln (100units/ml) SC SCH ×4 (06:20→21:41)
[2021-04-02 06:23] LABS: Potassium 3.8 mmol/L (3.5-5.1)
[2021-04-02] MEDS: BUDESONIDE (INHALATION) 180 MCG IH IN SCH ×2 (06:25→19:23)
[2021-04-02] MEDS: ALBUTEROL SULF HFA 90MCG INH 200DOSE IN PRN (06:26)
[2021-04-02 06:29] LABS: BUN/Creatinine Ratio 56.6; Calcium 8.3 mg/dL (8.5-10.1)
[2021-04-02 07:22] LABS: Basophils % (manual) 0 (0.0-2.0); Blast Cells 0; Eosinophils % (manual) 0 (0-7); Metamyelocytes % 0; Myelocytes % 0; Promyelocytes % 0; Reactive Lymphocytes 0
[2021-04-02] MEDS: Ensure Enlive Strawberry 8oz Bottle PO SCH ×3 (08:10→17:44)
[2021-04-02 08:15] VITALS: BP 109/69
[2021-04-02 08:48] LABS: Band Neutrophils % (manual) 5; Lymphocytes % (manual) 15 (10.0-50.0); Monocytes % (manual) 2 (0-12)
[2021-04-02 09:00] VITALS: BP 109/69
[2021-04-02] MEDS: ASCORBIC ACID 1,000 MG TAB PO SCH (10:00)
[2021-04-02] MEDS: FLORASTOR (S. BOULARDII) 250 MG CAP PO SCH ×2 (10:00→21:41)
[2021-04-02] MEDS: CHOLECALCIFEROL (VITD3) 2,000 UNIT CAP/TAB PO SCH (10:00)
[2021-04-02] MEDS: ZINC SULFATE 220mg CAP or TAB PO SCH (10:00)
[2021-04-02] MEDS: FUROSEMIDE 40 MG/4 ML VIAL IV SCH (10:49)
[2021-04-02] MEDS: ENOXAPARIN SOD 60 MG/0.6 ML SYRINGE SC SCH ×2 (10:53→21:25)
[2021-04-02] MEDS: LORazepam 2MG/ML-1ML VIAL IV PRN ×3 (11:33→21:00)
[2021-04-02 13:00] VITALS: BP 111/67
[2021-04-02] MEDS: SALINE 0.65 % NASAL SPRAY 45ML BOTTLE EACHNOSTRI SCH ×3 (14:37→21:40)
[2021-04-02 17:00] VITALS: BP 104/62
[2021-04-02 22:00] VITALS: BP 97/56
[2021-04-03] VITALS (7 sets, daily range): BP systolic 98–128; BP diastolic 53–74
[2021-04-03] MEDS: LORazepam 2MG/ML-1ML VIAL IV PRN ×3 (01:12→14:01)
[2021-04-03] MEDS: SALINE 0.65 % NASAL SPRAY 45ML BOTTLE EACHNOSTRI SCH ×4 (06:00→21:40)
[2021-04-03] MEDS: InsuLIN REG 1unit/0.01ml Soln (100units/ml) SC SCH ×4 (06:20→22:00)
[2021-04-03] MEDS: ACCU-CHEK COMFORT CURVE STRIP VI SCH ×4 (06:20→22:00)
[2021-04-03 06:54] LABS: Hematocrit 51.7 % (36.0-46.0); Hemoglobin 17.1 g/dL (12.2-16.2); Mean Corpuscular Hgb Conc. 33.1 g/dL (32.0-36.0); Mean Corpuscular Volume 93.7 fL (80.0-100.0); Red Blood Cells 5.51 10^6/uL (4.0-5.20); Red Cell Distribution Width 13.5 % (11.8-14.3); White Blood Cell 18.7 10^3/uL (4.4-10.8)
[2021-04-03 06:57] LABS: Potassium 3.9 mmol/L (3.5-5.1)
[2021-04-03 07:01] LABS: Basophils % (manual) 0 (0.0-2.0); Blast Cells 0; Eosinophils % (manual) 0 (0-7); Metamyelocytes % 0; Myelocytes % 0; Promyelocytes % 0; Reactive Lymphocytes 0
[2021-04-03 07:05] LABS: BUN/Creatinine Ratio 56.8; Calcium 8.1 mg/dL (8.5-10.1)
[2021-04-03] MEDS: Ensure Enlive Strawberry 8oz Bottle PO SCH ×3 (08:00→18:29)
[2021-04-03] MEDS: BUDESONIDE (INHALATION) 180 MCG IH IN SCH ×2 (09:16→20:29)
[2021-04-03] MEDS: ALBUTEROL SULF HFA 90MCG INH 200DOSE IN PRN ×2 (09:16→20:29)
[2021-04-03 09:30] LABS: Band Neutrophils % (manual) 5; Lymphocytes % (manual) 4 (10.0-50.0); Monocytes % (manual) 2 (0-12)
[2021-04-03] MEDS: ASCORBIC ACID 1,000 MG TAB PO SCH (10:00)
[2021-04-03] MEDS: FLORASTOR (S. BOULARDII) 250 MG CAP PO SCH ×2 (10:00→22:00)
[2021-04-03] MEDS: CHOLECALCIFEROL (VITD3) 2,000 UNIT CAP/TAB PO SCH (10:00)
[2021-04-03] MEDS: FUROSEMIDE 40 MG/4 ML VIAL IV SCH (10:00)
[2021-04-03] MEDS: ZINC SULFATE 220mg CAP or TAB PO SCH (10:00)
[2021-04-03] MEDS: ENOXAPARIN SOD 60 MG/0.6 ML SYRINGE SC SCH ×2 (10:28→21:40)
[2021-04-04] VITALS (10 sets, daily range): BP systolic 1–144; BP diastolic 48–82
[2021-04-04] MEDS: SALINE 0.65 % NASAL SPRAY 45ML BOTTLE EACHNOSTRI SCH ×4 (06:00→21:42)
[2021-04-04] MEDS: InsuLIN REG 1unit/0.01ml Soln (100units/ml) SC SCH ×3 (06:27→17:00)
[2021-04-04] MEDS: ACCU-CHEK COMFORT CURVE STRIP VI SCH ×4 (06:27→21:22)
[2021-04-04 07:02] LABS: Hemoglobin 16.4 g/dL (12.2-16.2); Mean Corpuscular Hemoglobin 32.4 pg (28.0-32.0); Mean Corpuscular Hgb Conc. 34.2 g/dL (32.0-36.0); Mean Corpuscular Volume 94.8 fL (80.0-100.0); Red Blood Cells 5.07 10^6/uL (4.0-5.20); Red Cell Distribution Width 13.6 % (11.8-14.3); White Blood Cell 21.4 10^3/uL (4.4-10.8)
[2021-04-04 07:07] LABS: Basophils % (manual) 0 (0.0-2.0); Blast Cells 0; Eosinophils % (manual) 0 (0-7); Metamyelocytes % 0; Myelocytes % 0; Promyelocytes % 0; Reactive Lymphocytes 0
[2021-04-04 07:11] LABS: BUN/Creatinine Ratio 52.6; Calcium 8.2 mg/dL (8.5-10.1); Potassium 4.3 mmol/L (3.5-5.1)
[2021-04-04 07:14] LABS: Lactic Acid w/Reflex 3.7 mmol/L (0.4-2.0)
[2021-04-04] MEDS: BUDESONIDE (INHALATION) 180 MCG IH IN SCH ×2 (07:21→22:00)
[2021-04-04] MEDS: ALBUTEROL SULF HFA 90MCG INH 200DOSE IN PRN (07:21)
[2021-04-04 07:23] LABS: Magnesium 2.9 mg/dL (1.6-2.6)
[2021-04-04 07:31] LABS: CRP High Sensitivity 12.4 mg/dL (< 0.3)
[2021-04-04] MEDS: ZINC SULFATE 220mg CAP or TAB PO SCH (07:52)
[2021-04-04] MEDS: ASCORBIC ACID 1,000 MG TAB PO SCH (07:53)
[2021-04-04] MEDS: FLORASTOR (S. BOULARDII) 250 MG CAP PO SCH ×2 (07:53→21:20)
[2021-04-04] MEDS: CHOLECALCIFEROL (VITD3) 2,000 UNIT CAP/TAB PO SCH (07:53)
[2021-04-04] MEDS: Ensure Enlive Strawberry 8oz Bottle PO SCH ×3 (08:00→16:47)
[2021-04-04 09:16] LABS: Band Neutrophils % (manual) 9; Lymphocytes % (manual) 3 (10.0-50.0); Monocytes % (manual) 2 (0-12)
[2021-04-04] MEDS: ENOXAPARIN SOD 60 MG/0.6 ML SYRINGE SC SCH ×2 (09:26→21:24)
[2021-04-04] MEDS ORDERED: PPN PER PHARMACY 0 ML IV SCH (09:30)
[2021-04-04] MEDS: DexAMETHasone SOD PHOS 10MG/1ML VIAL INJ IV SCH (09:57)
[2021-04-04] MEDS: LORazepam 2MG/ML-1ML VIAL IV PRN ×2 (09:57→14:17)
[2021-04-04] MEDS ORDERED: FUROSEMIDE 20 MG/2 ML VIAL IV SCH (10:00)
[2021-04-04] MEDS ORDERED: levoFLOXacin 750MG 150 ML IV SCH (10:00)
[2021-04-04] MEDS ORDERED: DEXTROSE (50%) 50ML SYRG IV PRN (10:00)
[2021-04-04 10:55] LABS: Albumin 1.7 g/dL (3.4-5.0); Bilirubin, Direct 0.7 mg/dL (0-0.2); Bilirubin, Total 1.6 mg/dL (0.2-1.0); Phosphorus 3.4 mg/dL (2.5-4.90); Pre Albumin 8.1 mg/dL (20.0-40.0)
[2021-04-04] MEDS: ALPRAZolam 0.25 MG TAB PO PRN (12:32)
[2021-04-04] MEDS ORDERED: AMINO ACID INFUSION IN D10W 1,000 ML IV NR (20:00)
[2021-04-04] MEDS ORDERED: InsuLIN REG 1unit/0.01ml Soln (100units/ml) SC SCH (22:00)
[2021-04-05] VITALS (7 sets, daily range): BP systolic 108–140; BP diastolic 69–83
[2021-04-05] MEDS ORDERED: DEXTROSE (50%) 50ML SYRG IV SCH
[2021-04-05] MEDS: InsuLIN REG 1unit/0.01ml Soln (100units/ml) SC SCH ×4 (00:42→15:59)
[2021-04-05] MEDS: ACCU-CHEK COMFORT CURVE STRIP VI SCH ×4 (00:42→15:59)
[2021-04-05] MEDS: SALINE 0.65 % NASAL SPRAY 45ML BOTTLE EACHNOSTRI SCH ×4 (05:32→21:59)
[2021-04-05] MEDS: MEROPENEM 1GM IVPB 100 ML IV SCH ×3 (06:18→21:59)
[2021-04-05 06:32] LABS: Hematocrit 47.8 % (36.0-46.0); Hemoglobin 16.1 g/dL (12.2-16.2); Mean Corpuscular Hgb Conc. 33.7 g/dL (32.0-36.0); Mean Corpuscular Volume 95.2 fL (80.0-100.0); Red Blood Cells 5.02 10^6/uL (4.0-5.20); Red Cell Distribution Width 13.5 % (11.8-14.3); White Blood Cell 18.4 10^3/uL (4.4-10.8)
[2021-04-05 06:35] LABS: INR 1.32 (0.9-1.15)
[2021-04-05 06:42] LABS: Basophils % (manual) 0 (0.0-2.0); Blast Cells 0; Eosinophils % (manual) 0 (0-7); Metamyelocytes % 0; Myelocytes % 0; Promyelocytes % 0; Reactive Lymphocytes 0
[2021-04-05 06:52] LABS: Albumin 1.9 g/dL (3.4-5.0); Bilirubin, Total 1.3 mg/dL (0.2-1.0); CRP High Sensitivity 9.28 mg/dL (< 0.3); Calcium 8.4 mg/dL (8.5-10.1); Magnesium 3.1 mg/dL (1.6-2.6); Phosphorus 1.8 mg/dL (2.5-4.90); Total Protein 5.8 g/dL (6.4-8.2)
[2021-04-05] MEDS: ALBUTEROL SULF 2.5 MG/0.5ML(0.5%) NEB SOLN NEB PRN ×2 (06:54→18:43)
[2021-04-05] MEDS: BUDESONIDE (INHALATION) 0.5 MG/2 ML NEB NEB SCH ×2 (06:54→18:43)
[2021-04-05 07:07] LABS: Lactic Acid w/Reflex 3.3 mmol/L (0.4-2.0)
[2021-04-05] MEDS: LORazepam 2MG/ML-1ML VIAL IV PRN ×2 (07:44→17:25)
[2021-04-05 07:53] LABS: Band Neutrophils % (manual) 4; Lymphocytes % (manual) 2 (10.0-50.0); Monocytes % (manual) 2 (0-12)
[2021-04-05] MEDS: Ensure Enlive Strawberry 8oz Bottle PO SCH ×3 (08:00→17:16)
[2021-04-05] MEDS: ENOXAPARIN SOD 60 MG/0.6 ML SYRINGE SC SCH ×2 (09:05→22:00)
[2021-04-05] MEDS: DexAMETHasone SOD PHOS 10MG/1ML VIAL INJ IV SCH (09:05)
[2021-04-05] MEDS: FUROSEMIDE 20 MG/2 ML VIAL IV SCH (09:09)
[2021-04-05] MEDS: CHOLECALCIFEROL (VITD3) 2,000 UNIT CAP/TAB PO SCH (09:10)
[2021-04-05] MEDS: ASCORBIC ACID 1,000 MG TAB PO SCH (09:10)
[2021-04-05] MEDS: ZINC SULFATE 220mg CAP or TAB PO SCH (09:10)
[2021-04-05] MEDS: FLORASTOR (S. BOULARDII) 250 MG CAP PO SCH ×2 (09:10→21:46)
[2021-04-05] MEDS ORDERED: PPN PER PHARMACY IV NR ×6 (20:00)
[2021-04-06] MEDS: ACCU-CHEK COMFORT CURVE STRIP VI SCH ×5 (00:16→23:59)
[2021-04-06] MEDS: InsuLIN REG 1unit/0.01ml Soln (100units/ml) SC SCH ×4 (00:23→16:04)
[2021-04-06 05:00] VITALS: BP 148/81
[2021-04-06 05:38] VITALS: BP 148/81
[2021-04-06] MEDS: MEROPENEM 1GM IVPB 100 ML IV SCH ×3 (05:50→21:41)
[2021-04-06] MEDS: SALINE 0.65 % NASAL SPRAY 45ML BOTTLE EACHNOSTRI SCH ×4 (05:50→21:41)
[2021-04-06 06:56] LABS: Basophils # (auto) 0 10 ^3/uL (0-0.2); Basophils % (auto) 0.1 % (0.0-2.0); Eosinophils # (auto) 0 10 ^3/uL (0-0.8); Eosinophils % (auto) 0.1 % (0.0-7.0); Hematocrit 44.3 % (36.0-46.0); Hemoglobin 15.1 g/dL (12.2-16.2); Lymphocytes # (auto) 0.3 10 ^3/uL (0.4-5.4); Lymphocytes % (auto) 2.1 % (10.0-50.0); Mean Corpuscular Hemoglobin 32.6 pg (28.0-32.0); Mean Corpuscular Hgb Conc. 34.1 g/dL (32.0-36.0); Mean Corpuscular Volume 95.4 fL (80.0-100.0); Monocytes # (auto) 0.6 10 ^3/uL (0-1.3); Monocytes % (auto) 3.8 % (0.0-12.0); Neutrophils # (auto) 14.9 10 ^3/uL (1.6-8.6); Neutrophils % (auto) 93.9 % (37.0-80.0); Nucleated Red Blood Cells % 0.1 %; Red Blood Cells 4.65 10^6/uL (4.0-5.20); Red Cell Distribution Width 13.5 % (11.8-14.3); White Blood Cell 15.8 10^3/uL (4.4-10.8)
[2021-04-06 07:11] LABS: Albumin 1.9 g/dL (3.4-5.0); Calcium 8.1 mg/dL (8.5-10.1); Magnesium 3.1 mg/dL (1.6-2.6); Potassium 3.7 mmol/L (3.5-5.1)
[2021-04-06 07:14] LABS: BUN/Creatinine Ratio 44.4; Bilirubin, Total 1.2 mg/dL (0.2-1.0); Phosphorus 2.2 mg/dL (2.5-4.90); Total Protein 5.5 g/dL (6.4-8.2)
[2021-04-06] MEDS: BUDESONIDE (INHALATION) 0.5 MG/2 ML NEB NEB SCH ×2 (07:22→21:34)
[2021-04-06] MEDS: ALBUTEROL SULF 2.5 MG/0.5ML(0.5%) NEB SOLN NEB PRN ×2 (07:22→21:34)
[2021-04-06] MEDS: DexAMETHasone SOD PHOS 10MG/1ML VIAL INJ IV SCH (08:21)
[2021-04-06] MEDS: FUROSEMIDE 20 MG/2 ML VIAL IV SCH (08:22)
[2021-04-06] MEDS: ENOXAPARIN SOD 60 MG/0.6 ML SYRINGE SC SCH ×2 (08:22→21:42)
[2021-04-06] MEDS: Ensure Enlive Strawberry 8oz Bottle PO SCH ×3 (08:23→17:10)
[2021-04-06] MEDS: ASCORBIC ACID 1,000 MG TAB PO SCH (08:23)
[2021-04-06] MEDS: ZINC SULFATE 220mg CAP or TAB PO SCH (08:23)
[2021-04-06] MEDS: FLORASTOR (S. BOULARDII) 250 MG CAP PO SCH ×2 (08:23→21:42)
[2021-04-06] MEDS: CHOLECALCIFEROL (VITD3) 2,000 UNIT CAP/TAB PO SCH (08:23)
[2021-04-06 09:00] VITALS: BP 133/75
[2021-04-06] MEDS ORDERED: SODIUM PHOSP 20MEQ(15MMOL) IN NS 100 ML IV ONE (11:15)
[2021-04-06] MEDS ORDERED: PPN PER PHARMACY IV ONE ×6 (11:15)
[2021-04-06 13:00] VITALS: BP 134/83
[2021-04-06 17:00] VITALS: BP 140/83
[2021-04-06] MEDS ORDERED: PPN PER PHARMACY IV NR ×12 (20:00)
[2021-04-06] MEDS ORDERED: TPN PER PHARMACY IV NR ×6 (20:00)
[2021-04-06 21:43] VITALS: BP 126/76
[2021-04-07] MEDS: InsuLIN REG 1unit/0.01ml Soln (100units/ml) SC SCH ×4 (00:06→18:00)
[2021-04-07] MEDS: LORazepam 2MG/ML-1ML VIAL IV PRN ×3 (02:34→13:10)
[2021-04-07 05:23] VITALS: BP 132/86
[2021-04-07] MEDS: ACCU-CHEK COMFORT CURVE STRIP VI SCH ×3 (05:41→18:00)
[2021-04-07] MEDS: SALINE 0.65 % NASAL SPRAY 45ML BOTTLE EACHNOSTRI SCH ×3 (05:41→18:00)
[2021-04-07] MEDS: MEROPENEM 1GM IVPB 100 ML IV SCH ×2 (05:44→14:00)
[2021-04-07 05:45] LABS: Hemoglobin 14.1 g/dL (12.2-16.2); Mean Corpuscular Hemoglobin 31.8 pg (28.0-32.0); Mean Corpuscular Hgb Conc. 32.9 g/dL (32.0-36.0); Mean Corpuscular Volume 96.8 fL (80.0-100.0); Red Blood Cells 4.44 10^6/uL (4.0-5.20); Red Cell Distribution Width 13.7 % (11.8-14.3); White Blood Cell 18.7 10^3/uL (4.4-10.8)
[2021-04-07 05:51] LABS: Basophils % (manual) 0 (0.0-2.0); Blast Cells 0; Eosinophils % (manual) 0 (0-7); Metamyelocytes % 0; Myelocytes % 0; Promyelocytes % 0; Reactive Lymphocytes 0
[2021-04-07 06:11] LABS: Potassium 4.7 mmol/L (3.5-5.1)
[2021-04-07 06:18] LABS: Albumin 1.8 g/dL (3.4-5.0); BUN/Creatinine Ratio 70.8; Bilirubin, Total 1.6 mg/dL (0.2-1.0); Calcium 7.7 mg/dL (8.5-10.1); Magnesium 2.8 mg/dL (1.6-2.6); Total Protein 5.2 g/dL (6.4-8.2)
[2021-04-07] MEDS: BUDESONIDE (INHALATION) 0.5 MG/2 ML NEB NEB SCH (06:22)
[2021-04-07] MEDS: ALBUTEROL SULF 2.5 MG/0.5ML(0.5%) NEB SOLN NEB PRN (06:22)
[2021-04-07 06:37] LABS: Band Neutrophils % (manual) 4; Lymphocytes % (manual) 2 (10.0-50.0); Monocytes % (manual) 1 (0-12)
[2021-04-07] MEDS: Ensure Enlive Strawberry 8oz Bottle PO SCH ×3 (08:00→18:00)
[2021-04-07 09:00] VITALS: BP 122/56
[2021-04-07] MEDS: ENOXAPARIN SOD 60 MG/0.6 ML SYRINGE SC SCH (09:07)
[2021-04-07] MEDS: DexAMETHasone SOD PHOS 10MG/1ML VIAL INJ IV SCH (09:07)
[2021-04-07] MEDS: FUROSEMIDE 20 MG/2 ML VIAL IV SCH (09:07)
[2021-04-07] MEDS: ASCORBIC ACID 1,000 MG TAB PO SCH (09:22)
[2021-04-07] MEDS: ZINC SULFATE 220mg CAP or TAB PO SCH (09:22)
[2021-04-07] MEDS: CHOLECALCIFEROL (VITD3) 2,000 UNIT CAP/TAB PO SCH (09:22)
[2021-04-07] MEDS: FLORASTOR (S. BOULARDII) 250 MG CAP PO SCH (09:22)
[2021-04-07 13:00] VITALS: BP 72/43
[2021-04-07 17:00] VITALS: BP 94/49
[2021-04-07] MEDS ORDERED: PPN PER PHARMACY IV NR ×7 (20:00)
[2021-04-07] MEDS ORDERED: TPN PER PHARMACY IV NR ×6 (20:00)
== END 2021-04-07 20:02 | DRG 871 ==
LOC: ER 09:07 → EDBD 09:07 → TELE 12:45 → TELE-EAST 22:14 → TELE-E-ADS 03-28 06:24
PROVIDERS: ADMIT Internal Medicine; ATTEND Internal Medicine Pulmonary Disease
PROC: XW033E5 Introduction of Remdesivir Anti-infective into Peripheral Vein, Percutaneous Approach, New Technology Group 5 (ICD-10-PCS; 2021-03-21)
PROC: 5A0955A Assistance with Respiratory Ventilation, Greater than 96 Consecutive Hours, High Flow/Velocity Cannula (ICD-10-PCS; 2021-03-28)
PROC: 05HB33Z Insertion of Infusion Device into Right Basilic Vein, Percutaneous Approach (ICD-10-PCS; principal; 2021-03-29)
PROC: B54MZZA Ultrasonography of Right Upper Extremity Veins, Guidance (ICD-10-PCS; 2021-03-29)
PROC: 5A09357 Assistance with Respiratory Ventilation, Less than 24 Consecutive Hours, Continuous Positive Airway Pressure (ICD-10-PCS; 2021-04-03)
PROC: 5A09457 Assistance with Respiratory Ventilation, 24-96 Consecutive Hours, Continuous Positive Airway Pressure (ICD-10-PCS; 2021-04-04)
DX: A41.89 Other specified sepsis (principal); U07.1 COVID-19; J12.82 Pneumonia due to coronavirus disease 2019; J80 Acute respiratory distress syndrome; I26.99 Other pulmonary embolism without acute cor pulmonale; E87.1 Hypo-osmolality and hyponatremia; D68.59 Other primary thrombophilia; E44.0 Moderate protein-calorie malnutrition; D89.834 Cytokine release syndrome, grade 4; E11.65 Type 2 diabetes mellitus with hyperglycemia; E78.5 Hyperlipidemia, unspecified; R04.0 Epistaxis; F41.9 Anxiety disorder, unspecified; I10 Essential (primary) hypertension; J45.909 Unspecified asthma, uncomplicated; Z66 Do not resuscitate; Z81.8 Family history of other mental and behavioral disorders; Z68.28 Body mass index [BMI] 28.0-28.9, adult; Z83.3 Family history of diabetes mellitus; Z90.711 Acquired absence of uterus with remaining cervical stump; Z88.1 Allergy status to other antibiotic agents; Z88.5 Allergy status to narcotic agent; Z88.2 Allergy status to sulfonamides; Z88.7 Allergy status to serum and vaccine
CPT/HCPCS: 36415; 36600; 71045; 80048; 80053; 80076; 81001; 82040; 82306; 82728; 82805; 82962; 83605; 83615; 83735; 83880; 84100; 84439; 84443; 84478; 84484; 85007; 85025; 85027; 85379; 85610; 86141; 86850; 86900; 86901; 87040; 87426; 93005; 94640; 94660; 96361; 96365; G0378; J0696; J1100; J1815; J1956; J2185; J2405; J3490